=== PATIENT | male | born 1985 | race Caucasian/White ===

== ENCOUNTER 2024-06-19 22:44 | Inpatient (IN) | payer BC, OTHER ==
[2024-06-19] MEDS ORDERED: Sodium Chloride 0.9% 10 ML Syringe FLUSH PRN (22:55)
[2024-06-19 23:23] LABS: BASOPHILS ABSOLUTE AUTO 0.08 K/uL (0.00-0.20); BASOPHILS PERCENT AUTO 0.7 % (0.0-1.0); HEMATOCRIT 45.3 % (42.0-52.0); HEMOGLOBIN 15.7 g/dL (14.0-18.0); IMMATURE GRAN ABSOLUTE AUTO 0.06 K/uL (0.00-0.05); IMMATURE GRAN PERCENT AUTO 0.5 % (0.0-0.4); LYMPHOCYTES ABSOLUTE AUTO 0.99 K/uL (1.00-4.80); LYMPHOCYTES PERCENT AUTO 8.6 % (24.0-44.0); MEAN CORPUSCULAR HEMOGLOBIN 32.4 pg (28.0-32.0); MEAN CORPUSCULAR HGB CONC 34.7 g/dL (32.0-36.0); MEAN CORPUSCULAR VOLUME 93.4 fL (83.0-99.0); MEAN PLATELET VOLUME 9.1 fL (9.4-12.4); MONOCYTES ABSOLUTE AUTO 0.87 K/uL (0.00-0.80); MONOCYTES PERCENT AUTO 7.6 % (0.0-8.0); NEUTROPHILS ABSOLUTE AUTO 9.51 K/uL (1.80-7.70); NEUTROPHILS PERCENT AUTO 82.6 % (41.0-71.0); PLATELET COUNT,PLT 227 K/uL (150-400); RED BLOOD CELL COUNT 4.85 M/uL (4.52-5.90); WHITE BLOOD CELL COUNT,WBC 11.51 K/uL (3.9-11.3)
[2024-06-19] MEDS: Ketorolac 30 MG/ML SDV IVPUSH ONE (23:25)
[2024-06-19] MEDS: Morphine 4 MG/ML Syringe IVPUSH ONE (23:26)
[2024-06-19] MEDS: Ondansetron 4 MG/2 ML SDV IVPUSH ONE (23:26)
[2024-06-19] MEDS: Acetaminophen 500 MG Tab PO ONE (23:26)
[2024-06-19] MEDS ORDERED: Ondansetron 4 MG/2 ML SDV IVPUSH ONE (23:39)
[2024-06-19 23:46] LABS: A/G RATIO 1.1 (0.9-1.6); ALBUMIN 4.5 g/dL (3.4-5.0); BILIRUBIN TOTAL 0.5 mg/dL (0.2-1.0); CALCIUM 9.5 mg/dL (8.5-10.1); CARBON DIOXIDE,CO2 27.7 mmol/L (21.0-32.0); EST CRCL DRUG DOSING (CG) 113.03 mL/min; POTASSIUM,K 4.1 mmol/L (3.5-5.1); PROTEIN TOTAL,TP 8.5 g/dL (6.4-8.2)
[2024-06-19] MEDS: Lidocaine 1% with EPINEPHrine 1:100,000 10 ML MDV INFILT ONE (23:55)
[2024-06-19] MEDS: Ketamine 500 mg/10 ML MDV IV PRN (23:55)
[2024-06-20] MEDS: HYDROmorphone 0.5 MG/0.5 ML Syringe IVPUSH ONE (00:36)
[2024-06-20] MEDS: Sodium Chloride 0.9% 1,000 ML IV ONE (00:36)
[2024-06-20] MEDS ORDERED: Morphine 4 MG/ML Syringe IVPUSH PRN (01:47)
[2024-06-20] MEDS ORDERED: Acetaminophen 1,000 MG in Premix Bag 1 BAG IV PRN (02:10)
[2024-06-20] MEDS ORDERED: Ketorolac 30 MG/ML SDV IVPUSH PRN (02:11)
[2024-06-20] MEDS: Ketorolac 30 MG/ML SDV IVPUSH SCH (02:16)
[2024-06-20] MEDS ORDERED: Gabapentin 300 MG Cap PO PRN (02:18)
[2024-06-20] MEDS: Gabapentin 300 MG Cap PO ONE (02:23)
[2024-06-20] MEDS: Acetaminophen 500 MG Tab PO SCH (02:39)
[2024-06-20] MEDS ORDERED: Sodium Chloride 0.9% 2.5 ML Syringe FLUSH PRN (02:41)
[2024-06-20] MEDS ORDERED: HYDROmorphone 2 MG/ML Syringe IVPUSH PRN (02:41)
[2024-06-20] MEDS ORDERED: Naloxone 0.4 MG/ML SDV IVPUSH PRN (02:41)
[2024-06-20] MEDS ORDERED: Sodium Chloride 0.9% 10 ML Syringe FLUSH PRN (02:41)
[2024-06-20] MEDS ORDERED: Ondansetron 4 MG/2 ML SDV IVPUSH PRN (02:41)
[2024-06-20] MEDS: HYDROmorphone 0.5 MG/0.5 ML Syringe IVPUSH PRN (07:44)
[2024-06-20] MEDS: oxyCODONE 5 MG Tab PO PRN (09:48)
[2024-06-20] MEDS: Acetaminophen 1,000 MG in Premix Bag 1 BAG IV PRN (15:39)
[2024-06-21] MEDS: Cyclobenzaprine 5 MG Tab PO PRN (22:05)
[2024-06-22 12:42] VITALS: BP 137/92; PULSE 68
== END 2024-06-22 16:00 | disposition home or self-care (01) | DRG 200 ==
LOC: MW.ED 22:44 → MW.MS 06-20 01:48 → OBSVTOIN 06-21 13:55 → MW.MS 06-21 23:47
PROVIDERS: ADMIT Surgery; ATTEND Surgery
PROC: 0W9930Z Drainage of Right Pleural Cavity with Drainage Device, Percutaneous Approach (ICD-10-PCS; principal; 2024-06-19)
DX: S27.0XXA Traumatic pneumothorax, initial encounter (principal); S22.41XA Multiple fractures of ribs, right side, initial encounter for closed fracture; S39.91XA Unspecified injury of abdomen, initial encounter; S29.8XXA Other specified injuries of thorax, initial encounter; V86.95XA Unspecified occupant of 3- or 4- wheeled all-terrain vehicle (ATV) injured in nontraffic accident, initial encounter
CPT/HCPCS: 32551; 36415; 71045; 71045-26; 71046; 71046-26; 71260; 71260-26; 74177; 74177-26; 80053; 83690; 85025; 93005; 96361; 96365; 96374; 96375; 96376; 99285-25; A9270-GY; G0378; J0131; J1170; J1885; J2270; J2405; J3490; J7030